=== PATIENT | male | born 1965 | race Caucasian/White ===

== ENCOUNTER → 2018-04-26 | Outpatient (CLI) | payer OTHER ==
--- NOTE | 2018-04-26 08:58 | MR ---
EXAMINATION TYPE: MR brain wo/w con DATE OF EXAM: 04/26/2018 COMPARISON: NONE HISTORY: 53-year-old male Tremors, Memory loss TECHNIQUE: Multiplanar, multisequence images of the brain and brainstem were acquired before and aft er administration of 9.5 mL IV Gadavist. Diffusion weighted imaging is performed. FINDINGS: No evidence for acute infarction, hemorrhage, mass, mass effect, midline shift, herniation, effacemen t of basal cisterns, or extra-axial fluid collection. The ventricles and sulci are age-appropriate. Major intracranial flow voids are intact. T2/FLAIR weighted sequences show a few (<5) bright signal foci in the subcortical region of the right frontal and right frontoparietal lobes. Prominent perivascular spaces are present in both basal gang tomasz. Midline structures demonstrate normal morphology. The craniocervical junction is normal. Post contrast images demonstrate no evidence of pathologic enhancement. Dural venous sinuses are pat ent. Mild mucosal thickening within the ethmoid air cells and trace within the maxillary and frontal sinus es. Globes are intact. IMPRESSION: 1. No acute intracranial abnormality seen. Only a few bright white matter foci particularly in the acosta bcortical region on the right are nonspecific and likely relate to minimal changes of chronic small v essel ischemic disease. Chronic migraines may have a similar appearance. 2. Mild chronic paranasal sinus disease.
== END | disposition home or self-care (01) ==
LOC: RADMRIMAIN 07:34
PROVIDERS: ATTEND Psychiatry & Neurology Neurology
DX: R90.89 Other abnormal findings on diagnostic imaging of central nervous system (principal); R41.3 Other amnesia; R25.1 Tremor, unspecified
CPT/HCPCS: 70553; A9585

== ENCOUNTER → 2020-09-19 | Outpatient (CLI) | payer MEDICARE, OTHER ==
--- NOTE | 2020-09-19 18:06 | CONS ---
CONSULTATION DATE OF SERVICE: 09/19/2020. 55-year-old gentleman has been evaluated in the sleep center for possible obstructive sleep apnea-hypopnea syndrome, out of dream movements and jerking and twitches during the sleep. HISTORY OF PRESENT ILLNESS/SLEEP-WAKE EVALUATION: SLEEP SCHEDULE: Patient's usual sleep schedule from 8 p.m. to 6:30 am. Usually he falls asleep very quickly. No TV in bedroom. DURING SLEEP: He sleeps in different positions with extremely loud snoring and witnessed episodes of stopped breathing during sleep. The patient also has episodes of out of dream movements, twitches, squeezing his hands. He wakes up from sleep 4 times with 4 episodes of nocturia. Positive history of sleep talking, sweating, heartburns, awakenings with dry mouth. DURING THE DAY/SLEEP WAKE EVALUATION: In the morning, the patient wakes up tired, has difficulties to pay attention, falling asleep during the day. Has problems with concentration, irritability, depression and anxiety. [place] Sleepiness Scale significantly increased to 13. The patient takes naps 3 or more times during the day. No history of hypnagogic hallucinations, or cataplexy. PAST MEDICAL HISTORY: Positive for bipolar, hyperlipidemia, prostate cancer. PAST SURGICAL HISTORY: Prostate surgery for prostate CA in 2018. Hernia repair 2019. Neck fusion surgeries x3, 2009, knee arthroscopic surgery. MEDICATIONS: [place] 7.5. Abilify 10 mg once a day, atorvastatin 20 mg once a day, Lamictal 150 mg once a day, Cymbalta 60 mg once a day. Wellbutrin 150 mg once a day. FAMILY HISTORY: Hypertension, hyperlipidemia, arthritis, emphysema, acid reflux, thyroid problems. REVIEW OF SYSTEMS: Multiple awakenings from sleep, sleepiness during the day, out of dream movements during the sleep. PHYSICAL EXAMINATION: GENERAL: gentleman without distress. BP 132/92, HR 93, RR 15, height 5 feet 10 inches, weight 241.2, temperature 98.6, oxygen saturation at room air 97% . HEENT: Oropharynx extremely low position of soft palate. Mallampati 4. Wide neck 19 inches in circumference. NECK: Supple, no JVD. Thyroid is not palpable. LUNGS: Clear to percussion and to auscultation. Good air exchange. No wheezing or rhonchi. HEART: S1, S2 regular. No murmurs, gallops, or rubs. ABDOMEN: BMI 34.5. Abdomen: Obese. Soft and nontender. Bowel sounds are present. No organomegaly appreciated. EXTREMITIES: No clubbing or cyanosis. PODIATRIST: Awake, alert, and oriented X3. Cranial nerves 2 to 7 intact. There is no fasciculation or atrophy. noted. No focal deficits observed. IMPRESSION: 1. Loud snoring, witnessed episodes of stopped breathing during sleep, multiple awakenings from sleep with nocturia, extremely low position of soft palate, wide neck, sleepiness. [place] Sleepiness Scale increased to 13. Obstructive sleep apnea-hypopnea syndrome. 2. Episodes of out of dream movements with squeezing hands, possible REM sleep behavioral disorder. 3. Jerking movements, twitches, periodic limb movements. 4. Obesity, BMI 34.5. 5. History of bipolar disorder. 6. Hyperlipidemia. 7. History of prostate carcinoma, status post prostatectomy in 2018. 8. Back problems. 9. Status post neck fusion surgery x3 in 2008. 10.Status post hernia repair 2019. 11.Status post knee arthroscopic surgery about 20 years ago. PLAN: 1. Polysomnography for evaluation of patient breathing during sleep and also to check for possible REM sleep behavioral disorder and periodic limb movements. 2. CPAP/BiPAP titration if sleep study confirms obstructive sleep apnea-hypopnea syndrome. 3. Preferable position during sleep on the side. 4. No driving if patient feels any sleepiness. 5. I will see patient for follow up visit to explain results of testing and following plan. Thank you very much for referring this patient for consultation. Sincerely, Segundo Montez MD, PhD, FAASM Diplomat of [place] Board of Medical Specialties [place] Board of Internal Medicine Real Estate Leasing Manager of [facility] [place] MMODL / IJN: [id number] /
== END | disposition home or self-care (01) ==
CPT/HCPCS: 99211

== ENCOUNTER → 2020-12-25 | Outpatient (CLI) | payer MEDICARE, OTHER ==
--- NOTE | 2020-12-25 19:23 | SFUN ---
SLEEP CENTER FOLLOW UP NOTE DATE OF SERVICE: 12/25/2020 55-year-old gentleman has been followed in Sleep Center for treatment of obstructive sleep apnea-hypopnea syndrome. Today is his first visit after patient received BiPAP unit. I discussed results of the sleep studies with the patient in detail. He has extremely severe obstructive sleep apnea-hypopnea syndrome with apnea-hypopnea index 79. After starting treatment with BiPAP, patient feels better. He sleeps better and he feels better during the day. [place] Sleepiness Scale today is 4, which is normal. I checked BiPAP unit. Pressure is 17/13 cm of water. Usage is 27/30 nights, and 11 nights for more than 4 hours, average usage 3.7 hours per night. Leak is 6 L/minute, which is normal range. Apnea-hypopnea index is 1.0, which is totally normal. MEDICATIONS: [place], Abilify, atorvastatin, Lamictal, Cymbalta, Wellbutrin. PHYSICAL EXAMINATION: GENERAL: Patient in no distress. BP 139/82, HR 102, RR 16, weight 235, temperature 97.8, oxygen saturation at room air 96%. Oropharynx: Low position of soft palate. NECK: Supple, no JVD. Thyroid is not palpable. LUNGS: Clear to percussion and to auscultation. Good air exchange. No wheezing or rhonchi. HEART: S1, S2 regular. No murmurs, gallops, or rubs. ABDOMEN: Obese. Soft and nontender. Bowel sounds are present. No organomegaly appreciated. EXTREMITIES: No clubbing or cyanosis. SUPERVISOR QUILTING: Awake, alert, and oriented X3. Cranial nerves 2 to 7 intact. There is no fasciculation or atrophy. noted. No focal deficits observed. IMPRESSION: 1. Severe obstructive sleep apnea-hypopnea syndrome; apnea-hypopnea index 79.2, full normalization of respiration on BiPAP, benefitting from treatment, borderline compliance. The patient will continue to use his BiPAP equipment every night for the whole night. 2. Obesity. 3. History of episodes of out of dream movements. No recent episodes. 4. Periodic limb movements by results of during the titration. 5. History of bipolar disorder. 6. Hyperlipidemia. 7. History of prostate carcinoma, status post prostatectomy in 2018. 8. Back problems. 9. Status post neck fusion surgery times three in 2008. 10.Status post hernia repair in 2019. 11.Status post knee arthroscopic surgery about 20 years ago. PLAN: 1. I discussed with the patient position of the machine during the sleep. 2. Ramp time was adjusted to 20 minutes. It was 0 before. Patient feels that the pressure in his machine was too high at the beginning when he started to use it at night. 3. Sleep hygiene with regular time in bed for at least 7-1/2 to 8 hours. 4. Precautions related to driving. No driving if feeling sleepiness. 5. I will maintain all necessary prescription for PAP supplies including mask, tube, filters. 6. Watching weight. 7. Follow-up visit in 6 months or earlier if patient has any problems. Thank you very much for allowing me to participate in management of your patient. Sincerely, Segundo Montez MD, PhD, FAASM Diplomat of [place] [employer] Medical Specialties [place] [employer] of Internal Medicine Vendor Management Consultant of [facility] [place] MMODL / IJN: [id number] /
== END ==
LOC: SLEEP 10:14
PROVIDERS: ATTEND Internal Medicine
DX: G47.33 Obstructive sleep apnea (adult) (pediatric) (principal); E66.9 Obesity, unspecified; G47.61 Periodic limb movement disorder; F31.9 Bipolar disorder, unspecified; E78.5 Hyperlipidemia, unspecified; M53.80 Other specified dorsopathies, site unspecified; Z99.89 Dependence on other enabling machines and devices; Z98.890 Other specified postprocedural states; Z85.46 Personal history of malignant neoplasm of prostate

== ENCOUNTER → 2021-04-24 | Outpatient (CLI) | payer MEDICARE ==
--- NOTE | 2021-04-24 13:36 | MR ---
EXAMINATION TYPE: MR knee LT wo con DATE OF EXAM: 04/24/2021 COMPARISON: Outside radiographs 04/01/2021 HISTORY: 56-year-old male M25.562. Left knee posterior and anterior pain with swelling and locking x3 months TECHNIQUE: Multiplanar, multisequence imaging of the left knee is performed without IV contrast. FINDINGS: The ACL and PCL are intact. Mild edema on either side of the intact MCL fibers. Some intermediate signal at the femoral attachment of the LCL proper and also within the popliteus te ndon. LCL complex otherwise intact. There is a complex multidirectional tear extending throughout the posterior horn and body of the medi al meniscus. Tear extends to the junction with the anterior horn. Mild extrusion of the meniscal body . There is moderate irregular cartilage thinning throughout the medial compartment. Inner margin tear/fraying involving the posterior horn and body of the lateral meniscus. Some intrasu bstance signal likely corresponds to meniscal chondrocalcinosis seen on radiograph. There is mild to moderate diffuse thinning of lateral compartment articular cartilage volume. Patellofemoral compartment appears intact. Extensor mechanism is intact. Nonspecific anterior subcutaneous soft tissue swelling. There is some f ocal edema within the suprapatellar fat pad. Small knee joint effusion. There is a moderate sized 7.0 x 3.0 cm slowly leaking Segura's cyst. Multil ocular cystic lesion present along the lateral margin of the Segura's cyst towards the midline overlyi ng the gastrocnemius musculature measuring 2.8 x 1.6 cm, likely an adjacent multilocular ganglion cys t. Normal popliteal artery anatomy. Mild overall loss of muscle bulk. No suspicious bone marrow replacem ent. IMPRESSION: 1. Complex multidirectional tear involving the posterior horn and body of the medial meniscus with te ar extending to the junction with the anterior horn. Moderate overall medial compartmental osteoarthr osis. 2. Inner margin tear/fraying posterior horn and body of the lateral meniscus. Mild degenerative thinn ing of lateral compartment articular cartilage volume. 3. Grade 1 MCL sprain. 4. Some intermediate signal at the femoral attachment of the LCL proper and within the popliteus tend on could represent a low-grade sprain and mild tendinosis/contusion, respectively. 5. Moderate-sized 7.0 cm slowly leaking Segura's cyst. A 2.8 x 1.6 cm lesion along the lateral margin of the Segura's cyst could represent adjacent multilocular ganglion cyst formation. Recommend three-mo nth follow-up ultrasound to reassess. 5. Edema in the suprapatellar fat pad is nonspecific but may be seen in the setting of fat pad imping ement syndrome. Clinically correlate.
== END | disposition home or self-care (01) ==
LOC: RADMRIMAIN 11:11
PROVIDERS: ATTEND Orthopaedic Surgery
DX: S83.412A Sprain of medial collateral ligament of left knee, initial encounter (principal); S83.242A Other tear of medial meniscus, current injury, left knee, initial encounter; S83.282A Other tear of lateral meniscus, current injury, left knee, initial encounter

== ENCOUNTER → 2021-05-27 | Outpatient (CLI) | payer MEDICARE ==
[2021-05-27 09:03] LABS: Basophils % (A) 1 %; Eosinophils # (A) 0.3 k/uL (0-0.7); Eosinophils % (A) 5 %; HCT 38.1 % (39.0-53.0); HGB 12.9 gm/dL (13.0-17.5); Lymphocytes % (A) 14 %; MCH 30.1 pg (25.0-35.0); MCHC 33.8 g/dL (31.0-37.0); MCV 88.8 fL (80.0-100.0); Mean Platelet Volume 6.9; Monocytes # (A) 0.4 k/uL (0-1.0); Monocytes % (A) 6 %; Neutrophils # (A) 4.9 k/uL (1.3-7.7); Neutrophils % (A) 72 %; Platelet Count 248 k/uL (150-450); RBC 4.29 m/uL (4.30-5.90); RDW 13.1 % (11.5-15.5); WBC 6.8 k/uL (3.8-10.6)
[2021-05-27 09:13] LABS: Potassium 4.1 mmol/L (3.5-5.1)
== END | disposition home or self-care (01) ==
LOC: LABPAT 08:24
PROVIDERS: ATTEND Orthopaedic Surgery
DX: Z01.812 Encounter for preprocedural laboratory examination (principal); M23.92 Unspecified internal derangement of left knee
CPT/HCPCS: 36415; 80051; 85025

== ENCOUNTER 2021-06-05 10:56 | Day surgery (SDC) | payer MEDICARE ==
[2021-06-04 09:32] VITALS: BMI 37.3
--- NOTE | 2021-06-04 20:32 | HP ---
HISTORY AND PHYSICAL DATE OF SURGERY: 06/05/2021 Bryant Castle is a 56-year-old patient seen with progressive left knee pain. We discussed options for treatment. He elected to proceed with left knee arthroscopy. Consent was obtained. PAST MEDICAL HISTORY: Anxiety. SURGICAL HISTORY: Cervical spine surgery, prostatectomy. DAILY MEDICATIONS: Wellbutrin, Celexa, Abilify. ALLERGIES: NONE. SOCIAL HISTORY: He denies current tobacco use. PHYSICAL EVALUATION OF THE LEFT KNEE: Range of motion is zero to 100. There is a palpable Segura cyst. There is mild effusion. Tenderness along the lateral joint line. Tenderness along the medial joint line. Positive medial Laura's. Positive lateral Laura's. Ligaments stable. Hip rotation without pain. Distal neurovascular exam intact. Left knee radiographs reveal osteoarthritic changes. Left knee MRI revealed complex meniscal tears and Segura cyst. IMPRESSION: Internal derangement of left knee with medial and lateral meniscal tears. PLAN: Left knee arthroscopy with partial meniscectomy and debridement. MMODL / IJN: [id number] /
[~2021-06-05 10:56] MED LIST: DEXAMETHASONE SOD PHOSPHATE 4 MG/ML 1 ML VIAL IV ONE; HYDROmorphone 0.5 MG/0.5 ML SYRINGE IVP PRN; LACTATED RINGERS 1,000 ML IV SCH; LIDOCAINE 1% (10MG/ML) FOR IV START INTRADERMA PRN; MIDAZOLAM 2 MG/2 ML VIAL IV PRN; ONDANSETRON 4 MG/2 ML VIAL IVP ONE
[2021-06-05] MEDS ORDERED: BUPIVACAINE (PF) 0.25% 30 ML VIAL SQ ONE ×2 (13:48→14:23)
[2021-06-05] MEDS ORDERED: MIDAZOLAM 2 MG/2 ML VIAL ONE (13:50)
[2021-06-05] MEDS ORDERED: SUCCINYLCHOLINE CHLORIDE VIAL 200 MG/10 ML VIAL IV ONE (13:50)
[2021-06-05] MEDS ORDERED: .fentaNYL (PF) 50 MCG/ML 2 ML AMP ONE (13:50)
[2021-06-05] MEDS ORDERED: LIDOCAINE 1% INJ 10MG/ML (20 ML MDV) ONE (13:50)
[2021-06-05] MEDS ORDERED: ALBUTEROL HFA INHALER INHALATION ONE (13:50)
[2021-06-05] MEDS ORDERED: PROPOFOL 10 MG/ML 20 ML VIAL IV ONE (13:50)
[2021-06-05 14:38] VITALS: TEMP 98
--- NOTE | 2021-06-05 14:49 | P.OP ---
Date of Procedure: 06/05/21 Preoperative Diagnosis: Internal derangement left knee Postoperative Diagnosis: 1. Tear medial meniscus left knee 2. Lateral meniscus left knee 3. Reactive synovitis medial, lateral and suprapatellar compartments left knee Procedure(s) Performed: 1. Arthroscopic partial medial and lateral meniscectomy left knee 2. Arthroscopic partial synovectomy medial, lateral and suprapatellar compartments left knee Anesthesia: ANGUSA, local Surgeon: Kilo Lenz Estimated Blood Loss (ml): 7 Pathology: none sent Condition: stable Disposition: PACU Indications for Procedure: 56-year-old gentleman seen with progressive left knee pain. After treatment options were discussed, he elected to proceed with arthroscopy. Operative Findings: see description of procedure Description of Procedure: Patient was taken to the operative suite. Patient underwent a general anesthetic by the department of anesthesia. Patient was given preoperative antibiotics. The left lower extremity was placed in a well-padded arthroscopic leg nina. The left leg was prepped and draped in the normal sterile orthopedic fashion. A lateral parapatellar and suprapatellar incision was made. Trochars were inserted. Arthroscopy was initiated. Suprapatellar pouch revealed diffuse thick reactive synovitis. The patellofemoral joint appeared to articulate congruently. There was grade 1 chondromalacia of the patella with no tears present. The scope was guided into the medial gutter. No loose bodies or plica were identified. The scope was then guided into the medial compartment. A medial parapatellar incision was made. Trocar inserted followed by probe. Was a complex tear involving the posterior horn of the medial meniscus. There were grade 1 chondromalacia changes of the medial femoral condyle with no tears. There was thick reactive synovitis anteriorly. I performed a partial medial meniscectomy getting down to stable meniscal tissue. I performed a partial synovectomy decompressing the reactive synovitis. Shaver was removed. The residual meniscus was probed and found to be stable. There was good decompression of the synovitis. Scope and probe were then guided into the intercondylar notch. Cruciates were identified, probed and found to be stable. The scope and probe were then guided into lateral compartment. There was a radial tear involving the posterior horn of lateral meniscus. There was thick reactive synovitis anteriorly. There was no significant chondromalacia. I performed a partial lateral meniscectomy. I now performed a partial synovectomy. The residual meniscus was found to be stable. There was good decompression of the synovitis. The scope was in guided back into the suprapatellar compartment. I introduced a motorized shaver into the super compartment. I debrided some piecemeal fragments of meniscus I encountered. I performed a partial synovectomy. Shaver was removed. There was good decompression of the synovitis. I now took one more look around the entire knee, no residual debris. Instruments were now removed from the joint. The joint was infiltrated with .25% Marcaine. Steri-Strips were applied to the portal sites. Sterile dressings were applied. The patient was placed into a JONATAN hose. No tourniquet was utilized. The patient was awakened, transferred to a bed and taken to recovery stable satisfactory condition.
[2021-06-05 15:27] VITALS: RESP 18
[2021-06-05 15:49] VITALS: BP 127/81; PULSE 82
== END 2021-06-05 15:53 | disposition home or self-care (01) ==
LOC: OR 10:56
PROVIDERS: ATTEND Orthopaedic Surgery
DX: M23.92 Unspecified internal derangement of left knee (principal); M23.204 Derangement of unspecified medial meniscus due to old tear or injury, left knee; M23.201 Derangement of unspecified lateral meniscus due to old tear or injury, left knee; M65.862 Other synovitis and tenosynovitis, left lower leg; F41.9 Anxiety disorder, unspecified; Z98.890 Other specified postprocedural states; Z90.79 Acquired absence of other genital organ(s); E78.5 Hyperlipidemia, unspecified; G47.33 Obstructive sleep apnea (adult) (pediatric); Z85.46 Personal history of malignant neoplasm of prostate; F32.A Depression, unspecified; K21.9 Gastro-esophageal reflux disease without esophagitis; Z97.2 Presence of dental prosthetic device (complete) (partial); M22.40 Chondromalacia patellae, unspecified knee; E66.01 Morbid (severe) obesity due to excess calories; Z68.31 Body mass index [BMI] 31.0-31.9, adult; Z79.899 Other long term (current) drug therapy
CPT/HCPCS: 29880; J2250; J0330; J1100; J0690; J2405; J2001; J3010; J2704

== ENCOUNTER → 2021-06-26 | Outpatient (CLI) | payer MEDICARE, OTHER ==
--- NOTE | 2021-06-27 09:31 | SFUN ---
SLEEP CENTER FOLLOW UP NOTE DATE OF SERVICE: 06/26/2021 56-year-old gentleman who has been followed in Sleep Center for treatment of obstructive sleep apnea-hypopnea syndrome. Patient continued to use his BiPAP equipment every night for the whole night. Sleeps better on BiPAP than before. This is his second visit on treatment with BiPAP. [place] Sleepiness Scale is 7. He getting his supplies in time. I checked BiPAP unit. Pressure is 17/13 cm of water. Usage is 30/30 nights and 27/30 nights for more than 4 hours. Average usage 4.8 hours per night. Leak is 11 L/minute, which is normal range. Apnea-hypopnea index is only 0.6 which is normal. MEDICATIONS: [place], Wellbutrin, Abilify, Cymbalta, Lamictal, Lasix. PHYSICAL EXAMINATION: GENERAL: Patient in no distress. BP 150/84, HR 90, RR 16, height 5 feet 9-3/4 inches, weight 257.6 pounds, body mass index 37.1, temperature 97.4, oxygen saturation at room air 97%. Oropharynx: Low position of soft palate. NECK: Supple, no JVD. Thyroid is not palpable. LUNGS: Clear to percussion and to auscultation. Good air exchange. No wheezing or rhonchi. HEART: S1, S2 regular. No murmurs, gallops, or rubs. ABDOMEN: Obese. Soft and nontender. Bowel sounds are present. No organomegaly appreciated. EXTREMITIES: No clubbing or cyanosis. LEATHER CRAFTER: Awake, alert, and oriented X3. Cranial nerves 2 to 7 intact. There is no fasciculation or atrophy. noted. No focal deficits observed. IMPRESSION: 1. Extremely severe obstructive sleep apnea-hypopnea syndrome, AHI 79.2. The patient demonstrated good compliance with treatment. Normal respiration on BiPAP. 2. Obesity, BMI 37.1. 3. History of episodes of [id number] movements in the past, no recent episode. 4. Periodic limb movements during titration. No complaints of periodic limb movements at the present time. 5. Bipolar disorder. 6. Hyperlipidemia. 7. History of prostate carcinoma, status post prostatectomy in 2018. 8. Status post several neck fusions. 9. Back problems. 10.Status post hernia repair in 2019. 11.Status post knee arthroscopic surgery about 20 years ago. PLAN: 1. Patient will continue to use PAP equipment every night for the whole night. 2. Sleep hygiene with regular time in bed for at least 7-1/2 to 8 hours. 3. Precautions related to driving. No driving if feeling sleepiness. 4. I will maintain all necessary prescription for PAP supplies including mask, tube, filters. 5. Watching weight. 6. Follow-up visit in 6 months or earlier if patient has any problems. Thank you very much for allowing me to participate in management of your patient. Sincerely, Segundo Montez MD, PhD, FAASM Diplomat of [place] Board of Medical Specialties Sleep Medicine Board of [place] Board of Internal Medicine Customer Support Engineer of [facility] [place] MMODL / IJN: [id number] /
== END ==
LOC: SLEEP 11:06
PROVIDERS: ATTEND Internal Medicine
DX: G47.33 Obstructive sleep apnea (adult) (pediatric) (principal); E66.9 Obesity, unspecified; G47.61 Periodic limb movement disorder; F31.9 Bipolar disorder, unspecified; E78.5 Hyperlipidemia, unspecified; M54.9 Dorsalgia, unspecified; Z85.46 Personal history of malignant neoplasm of prostate; Z90.79 Acquired absence of other genital organ(s); Z98.1 Arthrodesis status; Z98.890 Other specified postprocedural states; Z79.899 Other long term (current) drug therapy; Z68.37 Body mass index [BMI] 37.0-37.9, adult

== ENCOUNTER → 2021-12-25 | Outpatient (CLI) | payer MEDICARE, OTHER ==
--- NOTE | 2021-12-25 11:10 | P.PN ---
Subjective DATE: 12/25/2021 FOLLOW UP VISIT. Patient with obstructive sleep apnea hypopnea syndrome return to sleep center for follow-up visit. Patient is using PAP equipment every night for the whole night, has problem with hose, close was not replaced for 1 year, but connection between hose and mask. The patient does not have significant problems with the mask, PAP unit and humidification. [place] sleepiness scale is 6. I checked BiPAP unit. Air filter is in a very bad shape. BiPAP unit pressure 19/13 cm H2O. Usage is 98 % for more then 4 hours, average 5 hours per night. Leak is 20 l/m, which is in acceptable range. Apnea Hypopnea Index is 0.3, which is normal. MEDICATIONS:1. Vicodin 3 times a day 2. Lamictal twice a day 3. Vibryd 2 times a day 4. Cymbalta 5. Hydrochlorothiazide 6. Lipitor During physical exam: GENERAL: A pleasant patient without any distress. VITAL SIGNS: BP 130/81, HR 88, RR 16 , weight 261, height 5 foot10 inches, body mass index 37.4, temperature 97.5, oxygen saturation at room air 96% . HEENT: PERRLA, EOMI.low position of soft palate, Mallapati 34 . NECK: Supple. No JVD. LUNGS: Clear to percussion and to auscultation. Good air exchange. No wheezing or rhonchi. HEART: S1, S2 regular. ABDOMEN: Soft and nontender. Slightly obese EXTREMITIES: No clubbing or cyanosis. SCROLL SHEAR OPERATOR: Awake, alert, and oriented x3. No focal deficit. Impressions: 1. Obstructive sleep apnea-hypopnea syndrome. Patient demonstrated great compliance with treatment, benefiting from treatment. Air filter in bed shape, tube has to be replaced. 2. Obesity. 3. History of out of dream movements during the sleep in the past, no recent episodes. 4. Bipolar disorder. 5. Hyperlipidemia. 6. Periodic limb movements have been documented during titration, presently no complaints. 7. History of prostate CVA, status post prostatectomy in 2018. 8. Status post several neck fusions. 9. Back problems. 10 status post hernia repair in 2019 Plan: 1. Continue using PAP equipment every night for the whole night. Replace tube. 2. To change air filter at least 1-2 times per month. To change air filter today 3. PAP unit should stay lower then position of the head. 4. Advised patient to remove all remaining water from humidifier canister daily and make it dry after each usage. Refill canister with fresh distilled water before each usage. 5. Sleep hygiene with regular time in bed for at least 8 hours. 6. Precautions related to driving. No driving if feel any sleepiness. 7. I will maintain prescription for PAP supplies including mask, tube, filters. 8. Follow up visit in 6 months or earlier if patient has any problems. 9. Watching and losing weight. Thank you very much for allowing me to participate in the management of your patient. Segundo Montez MD, PhD, FAASM. Diplomat of [place] [employer] Sleep Medicine, Sleep Medicine Board by [place] [employer] of Internal Medicine [place] of [facility] [place]
== END ==
LOC: SLEEP 10:16
PROVIDERS: ATTEND Internal Medicine
DX: G47.33 Obstructive sleep apnea (adult) (pediatric) (principal); E66.9 Obesity, unspecified; F31.9 Bipolar disorder, unspecified; E78.5 Hyperlipidemia, unspecified; Z85.46 Personal history of malignant neoplasm of prostate; Z90.79 Acquired absence of other genital organ(s); Z98.890 Other specified postprocedural states; M53.80 Other specified dorsopathies, site unspecified; Z98.1 Arthrodesis status; Z99.89 Dependence on other enabling machines and devices; Z68.37 Body mass index [BMI] 37.0-37.9, adult; Z79.899 Other long term (current) drug therapy
CPT/HCPCS: 99212

== ENCOUNTER → 2022-07-02 | Outpatient (CLI) | payer MEDICARE ==
--- NOTE | 2022-07-02 10:49 | P.PN ---
Subjective DATE: 07/02/2022 FOLLOW UP VISIT. Patient with obstructive sleep apnea hypopnea syndrome return to sleep center for follow-up visit. Information from previous visit have been reviewed. Patient is using BPAP equipment every night for the whole night, getting PAP supplies in time. No episodes of out of dream movements, no significant movements during the night related to periodic limb movements. The patient does not have significant problems with the mask, BPAP unit and humidification. [place] sleepiness scale is 8, which is normal. I checked information from BPAP unit. BPAP unit pressure 17/13 cm H2O. Usage is 95% and 80 % for more then 4 hours, average 4.2 hours per night. Leak is 23 l/m, which is in acceptable range. Apnea Hypopnea Index is 1.1, which is normal. MEDICATIONS:1. Omeprazole 2. Aldactone 3. Abilify 4. Atorvastatin 5. Metformin 6. Lamictal 7. Duloxetine 8. Wellbutrin 9. Lyrica During physical exam: GENERAL: A pleasant patient without any distress. VITAL SIGNS: BP 124/81, HR 91, RR 18, weight 264.2, temperature 97.9, oxygen saturation at room air 97 % . HEENT: PERRLA, EOMI.low position of soft palate, Mallapati 34. NECK: Supple. No JVD. LUNGS: Clear to percussion and to auscultation. Good air exchange. No wheezing or rhonchi. HEART: S1, S2 regular. ABDOMEN: Soft and nontender. Obese EXTREMITIES: No clubbing or cyanosis. FURNACE INSTALLER HELPER: Awake, alert, and oriented x3. No focal deficit. Impressions: 1. Obstructive sleep apnea-hypopnea syndrome. Patient demonstrated good compliance with treatment, benefiting from treatment. 2. History of REM sleep behavior disorder, no recent episodes. 3. History of periodic limb movements documented during titration, clinically no problems. 4. Bipolar disorder. 5. Obesity. 6. Hyperlipidemia. 7. History of prostate CA, status post prostatectomy in 2018. 8. Status post several neck fusions. 9. Back problems. 10. Status post hernia repair in 2019. Plan: 1. Continue using PAP equipment every night for the whole night. 2. To change air filter at least 1-2 times per month. 3. PAP unit should stay lower then position of the head. 4. Advised patient to remove all remaining water from humidifier canister daily and make it dry after each usage. Refill canister with fresh distilled water before each usage. 5. Sleep hygiene with regular time in bed for at least 8 hours. 6. Precautions related to driving. No driving if feel any sleepiness. 7. I will maintain prescription for PAP supplies including mask, tube, filters. 8. Watching and losing weight. 9. Follow up visit in 6 months or earlier if patient has any problems. Thank you very much for allowing me to participate in the management of your patient. Segundo Montez MD, PhD, FAASM. Diplomat of [place] [employer], Sleep Medicine Board by [place] [employer] Correctional Officer Chief of [facility] [place]
== END ==
LOC: SLEEP 10:15
PROVIDERS: ATTEND Internal Medicine
DX: G47.33 Obstructive sleep apnea (adult) (pediatric) (principal); F31.9 Bipolar disorder, unspecified; E66.9 Obesity, unspecified; E78.5 Hyperlipidemia, unspecified; M54.9 Dorsalgia, unspecified; Z48.815 Encounter for surgical aftercare following surgery on the digestive system; Z90.79 Acquired absence of other genital organ(s); Z85.46 Personal history of malignant neoplasm of prostate; G47.52 REM sleep behavior disorder; G47.61 Periodic limb movement disorder; Z98.1 Arthrodesis status; Z99.89 Dependence on other enabling machines and devices
CPT/HCPCS: 99212

== ENCOUNTER → 2023-02-10 | Outpatient (CLI) | payer MEDICARE ==
--- NOTE | 2023-02-10 11:05 | P.PN ---
Subjective DATE: 02/10/2023 FOLLOW UP VISIT. Patient with obstructive sleep apnea hypopnea syndrome return to sleep center for follow-up visit. Information from previous visit have been reviewed. Patient is using PAP equipment every night for the whole night, getting PAP supplies in time. The patient does not have significant problems with the mask, PAP unit and humidification. [place] sleepiness scale is increased to 12, but patient reported that she is so sleepiness now much better while he is on treatment with CPAP.. I checked information from PAP unit. PAP unit pressure 17/13 cm H2O. Usage is 90 % for more then 4 hours, average 4.5 hours per night. Leak is 17 l/m, which is in acceptable range. Apnea Hypopnea Index is 0.5, which is normal. MEDICATIONS:1. Metformin 500 mg twice a day 2. Lamictal 3. Lyrica 150 mg 3 times a day 4. Wellbutrin 150 mg twice a day 5. Abilify 10 mg once a day 6. Cymbalta 60 mg twice a day 7. Prilosec 20 mg twice a day During physical exam: GENERAL: A pleasant patient without any distress. VITAL SIGNS: BP 143/82, HR 104, RR 16 , weight 266.6, temperature 98.2, oxygen saturation at room air 97 % . HEENT: PERRLA, EOMI.low position of soft palate, Mallapati 34 . NECK: Supple. No JVD. LUNGS: Clear to percussion and to auscultation. Good air exchange. No wheezing or rhonchi. HEART: S1, S2 regular. ABDOMEN: Soft and nontender. Obese EXTREMITIES: No clubbing or cyanosis. ELECTRICAL MACHINE BUILDER: Awake, alert, and oriented x3. No focal deficit. Impressions: 1. Obstructive sleep apnea-hypopnea syndrome. Patient demonstrated great compliance with treatment, benefiting from treatment. 2. Obesity, patient increased his weight on 2 pounds comparing to the previous visit. 3. History of REM sleep behavior disorder in the past, no recent episodes. 4. History of periodic limb movements, no complaints. 5. Bipolar disorder 6. history of prostate cancer status post prostatectomy in 2018. 7. Hyperlipidemia. 8. Status post several neck fusion. 9. Back problems PlShe'll resume utilized his daughter is sick on treatmentan: 1. Continue using PAP equipment every night for the whole night. 2. To change air filter at least 1-2 times per month. 3. PAP unit should stay lower then position of the head. 4. Advised patient to remove all remaining water from humidifier canister daily and make it dry after each usage. Refill canister with fresh distilled water before each usage. 5. Sleep hygiene with regular time in bed for at least 8 hours. 6. Precautions related to driving. No driving if feel any sleepiness. 7. I will maintain prescription for PAP supplies including mask, tube, filters. 8. Follow up visit in 6 months or earlier if patient has any problems. 9. Watching and losing weight. Thank you very much for allowing me to participate in the management of your patient. Segundo Montez MD, PhD, FAASM. Diplomat of [place] [employer], Sleep Medicine Board by [place] [employer] Rice Field Worker of [facility] [place]
== END ==
LOC: 3 N SLEEP 10:17
PROVIDERS: ATTEND Internal Medicine
DX: G47.33 Obstructive sleep apnea (adult) (pediatric) (principal); E66.9 Obesity, unspecified; F31.9 Bipolar disorder, unspecified; E78.5 Hyperlipidemia, unspecified; M54.9 Dorsalgia, unspecified; Z98.890 Other specified postprocedural states; Z85.46 Personal history of malignant neoplasm of prostate; Z99.89 Dependence on other enabling machines and devices; Z98.1 Arthrodesis status
CPT/HCPCS: 99212

== ENCOUNTER → 2023-05-21 | Outpatient (CLI) | payer MEDICARE ==
--- NOTE | 2023-05-21 13:49 | NM ---
EXAMINATION TYPE: NM stress cardiolite complete DATE OF EXAM: 05/21/2023 COMPARISON: NONE CLINICAL INDICATION: Male, 58 years old with history of I20.9 ANGINA; TECHNIQUE: After the intravenous administration of 10.3 mCi Tc 99m Sestamibi - Rest images obtained 70 minutes post injection. The patient exercised using a KEN protocol and 1 minute prior to peak exercise was injected with 25.9 mCi Tc 99m Sestamibi - Stress images obtained 15 minutes post injecti on. FINDINGS: Targeted heart rate was achieved during performance of the study. Review of stress and rest SPECT adrian ges demonstrates no distinct perfusion abnormality. Gated analysis shows normal wall motion with an estimated left ventricular ejection fraction of 67 %. IMPRESSION: No scintigraphic evidence for reversible ischemia
--- NOTE | 2023-05-24 09:11 | CA ---
Exercise Nuclear Stress Test Report Name: [facility] Exam Date: 05/21/2023 09:25 Exam Location: [facility] Ht (in): 70 Wt (lb): 274 BSA: 2.39 Ordering Phys: LULA VIDALES Referring Phys: LULA VIDALES Technologist: KATHI SILVA Age: 58 Gender: M : 1965 Procedure CPT: Indications: ICD-10 Codes: Patient History: CP, JACIEL, DM, CHOL, TOB, COPD Medications: METFORMIN, LAMIZTOL, LYRIA, WELBUTRIN, KLORCON, CYMBALTA, OMEPRAZOLE, ABILILAL Meds past 24 hrs: Pretest Chest Pain: STRESS TEST Pradeep Protocol Exercise Duration (min:sec): 06:[address] Depressions (mm): Angina Score: Frank Score: Resting HR (bpm): 100 Peak HR (bpm): 146 Resting BP (mmHg): 135 / 83 Peak BP (mmHg): 194 / 98 MPHR: 163 Target HR: 139 % MPHR: 90 METS: 7.1 Total Dose: Peak Dose: Atropine: Double Product: 34360 BP Response: Stress Termination: Reached target heart rate Stress Symptoms: Dyspnea Stress Summary: The patient's target heart rate was achieved ECG ANALYSIS Resting ECG: Normal sinus rhythm normal axis normal intervals Stress ECG: Patient exercised on Pradeep protocol for 6 minutes achieving 90% of predicted maximal heart rate without chest pain or diagnostic ST segment depression CONCLUSIONS Average exercise tolerance negative stress test by EKG criteria Dr. Cameron Colon MD (Electronically Signed) Final Date: 21 May 2023 12:28
== END | disposition home or self-care (01) ==
LOC: RADNMMAIN 07:43
PROVIDERS: ATTEND Family Medicine
DX: I20.9 Angina pectoris, unspecified (principal); J44.9 Chronic obstructive pulmonary disease, unspecified; E11.9 Type 2 diabetes mellitus without complications; E78.00 Pure hypercholesterolemia, unspecified
CPT/HCPCS: 93017; 78452; A9500

== ENCOUNTER → 2023-09-09 | Outpatient (CLI) | payer MEDICARE ==
[2023-09-09 10:57] VITALS: BP 121/73; PULSE 106; RESP 18; TEMP 97.6
--- NOTE | 2023-09-09 11:37 | P.PN ---
Subjective DATE: 09/09/2023 FOLLOW UP VISIT. Patient with obstructive sleep apnea hypopnea syndrome return to sleep center for follow-up visit. Information from previous visit have been reviewed. Patient is using PAP equipment every night for the whole night, getting PAP supplies in time. The patient does not have significant problems with the mask, PAP unit and humidification. [place] sleepiness scale is borderline 11. I checked information from PAP unit. PAP unit pressure 17/13 cm H2O. Usage is 98% for more then 4 hours, average 4.9 hours per night. Leak is 26 l/m, which is in acceptable range. Apnea Hypopnea Index is 0.3, which is normal. MEDICATIONS:1. Bupropion 150 mg twice a day 2. Lamictal 150 mg once a day 3. Metformin 500 mg twice a day 4. Omeprazole 20 mg once a day 5. Furosemide 20 mg once a day 6. Abilify 10 mg once a day 7. Duloxetine 60 mg twice a day 8. Gabapentin 600 mg twice a day During physical exam: GENERAL: A pleasant patient without any distress. VITAL SIGNS: Please see below. HEENT: PERRLA, EOMI.low position of soft palate, Mallapati 3-4 . NECK: Supple. No JVD. LUNGS: Clear to percussion and to auscultation. Good air exchange. No wheezing or rhonchi. HEART: S1, S2 regular. ABDOMEN: Soft and nontender. Obese EXTREMITIES: No clubbing or cyanosis. PRESS OPERATOR: Awake, alert, and oriented x3. No focal deficit. Impressions: 1. Obstructive sleep apnea-hypopnea syndrome. Patient demonstrated great compliance with treatment, benefiting from treatment. 2. Obesity, present body mass index 39.9, patient lost 3 pounds since previous visit. 3. History of REM sleep behavioral disorder in the past, no recent episodes. 4. History of bipolar disorder. 5. History of prostate cancer, status post prostatectomy. 6. Hyperlipidemia. 7. Status post several neck fusions. 8. Back problems. 9. History of periodic limb movements, no complaints at the present time. Plan: 1. Continue using PAP equipment every night for the whole night. 2. To change air filter at least 1-2 times per month. 3. PAP unit should stay lower then position of the head. 4. Advised patient to remove all remaining water from humidifier canister daily and make it dry after each usage. Refill canister with fresh distilled water before each usage. 5. Sleep hygiene with regular time in bed for at least 8 hours. 6. Precautions related to driving. No driving if feel any sleepiness. 7. I will maintain prescription for PAP supplies including mask, tube, filters. 8.Watching and losing weight. 9. Follow up visit in 6 months or earlier if patient has any problems. Thank you very much for allowing me to participate in the management of your patient. Segundo Montez MD, PhD, FAASM. Diplomat of [place] [employer] Medicine, Sleep Medicine Board by [place] [employer] Medicine Reverse Unit Operator Fisherman of [facility] [place] Objective - Vital Signs Vital signs: Vital Signs Temp 97.6 F 09/09/23 10:45 Pulse 106 H 09/09/23 10:45 Resp 18 09/09/23 10:45 BP 121/73 09/09/23 10:45 Pulse Ox 95 09/09/23 10:45 FiO2 Intake & Output 09/08/23 09/09/23 09/09/23 18:59 06:59 18:59 Weight 119.295 kg
== END ==
LOC: 3 N SLEEP 10:34
PROVIDERS: ATTEND Internal Medicine
DX: G47.33 Obstructive sleep apnea (adult) (pediatric) (principal); E66.9 Obesity, unspecified; G47.52 REM sleep behavior disorder; F31.9 Bipolar disorder, unspecified; E78.5 Hyperlipidemia, unspecified; M51.9 Unspecified thoracic, thoracolumbar and lumbosacral intervertebral disc disorder; M54.9 Dorsalgia, unspecified; Z85.46 Personal history of malignant neoplasm of prostate; Z98.1 Arthrodesis status; Z87.39 Personal history of other diseases of the musculoskeletal system and connective tissue; Z79.899 Other long term (current) drug therapy; Z90.79 Acquired absence of other genital organ(s); Z68.39 Body mass index [BMI] 39.0-39.9, adult; Z99.89 Dependence on other enabling machines and devices
CPT/HCPCS: 99212

== ENCOUNTER 2023-12-21 07:25 | Day surgery (SDC) | payer MEDICARE, OTHER ==
[2023-12-16 11:45] VITALS: BMI 37.3
[2023-12-21 07:51] VITALS: TEMP 97.5
[2023-12-21] MEDS: IV FLUID CONTINUATION 1,000 ML IV ONE (08:04)
[2023-12-21] MEDS: LACTATED RINGERS 1,000 ML IV SCH (08:04)
[2023-12-21 08:10] LABS: Glucose,Whole Blood 111 mg/dL (70-110)
[2023-12-21] MEDS ORDERED: PROPOFOL 10 MG/ML 20 ML VIAL IV ONE (08:44)
[2023-12-21] MEDS ORDERED: LIDOCAINE 1% INJ 10MG/ML (20 ML MDV) ONE (08:44)
--- NOTE | 2023-12-21 09:07 | P.PCN ---
Date of Procedure: 12/21/23 Procedure(s) Performed: BRIEF HISTORY: Patient is a 58-year-old pleasant white male scheduled for an elective colonoscopy as a part of screening for colon cancer. PROCEDURE PERFORMED: Colonoscopy with biopsy. PREOPERATIVE DIAGNOSIS: Screening for colon cancer. IV sedation per Anesthesia. PROCEDURE: After informed consent was obtained, the patient, was brought into the endoscopy unit. IV sedation was administered by Anesthesia under continuous monitoring. Digital rectal examination was normal. Initially the Olympus CF-160 flexible video colonoscope was then inserted in the rectum, gradually advanced into the cecum without any difficulty. Careful examination was performed as the scope was gradually being withdrawn. Ileocecal valve and the appendiceal orifice were visualized and appeared normal. Prep was excellent. Mucosa of the cecum, ascending colon, appeared normal. The transverse colon there was a 5 mm polyp that was removed by cold biopsy. Rest of the transverse colon, descending colon, sigmoid colon, and rectum appeared normal. There was a millimeter polyp removed by cold biopsy. Retroflexion was performed in the rectum and no lesions were seen. The patient tolerated the procedure well. IMPRESSION: 5 mm transverse colon polyp status post removal by cold biopsy 3 mm proximal rectal polyp status post cold biopsy RECOMMENDATIONS: Findings of this examination were discussed with the patient as well as his family. He was advised to the biopsy results and the biopsy was adenoma he can have repeat colonoscopy in 5 years.
[2023-12-21 09:31] VITALS: BP 130/76; PULSE 85; RESP 20
== END 2023-12-21 09:40 | disposition home or self-care (01) ==
LOC: ORWHC2ENDO 07:25
PROVIDERS: ATTEND Internal Medicine Gastroenterology
DX: Z12.11 Encounter for screening for malignant neoplasm of colon (principal); D12.3 Benign neoplasm of transverse colon; K62.1 Rectal polyp; I10 Essential (primary) hypertension; E78.5 Hyperlipidemia, unspecified; J44.9 Chronic obstructive pulmonary disease, unspecified; G47.33 Obstructive sleep apnea (adult) (pediatric); E11.9 Type 2 diabetes mellitus without complications; K21.9 Gastro-esophageal reflux disease without esophagitis; F41.9 Anxiety disorder, unspecified; E66.01 Morbid (severe) obesity due to excess calories; Z85.46 Personal history of malignant neoplasm of prostate; Z79.84 Long term (current) use of oral hypoglycemic drugs; Z79.51 Long term (current) use of inhaled steroids; Z79.899 Other long term (current) drug therapy; Z98.890 Other specified postprocedural states
CPT/HCPCS: 88305; 45380; J2001; J2704

== ENCOUNTER 2023-12-29 12:38 | Day surgery (SDC) | payer MEDICARE, OTHER ==
--- NOTE | 2023-12-27 10:13 | P.HPOR ---
History of Present Illness H&P Date: 12/27/23 Subjective: This is a 58 year old male that presents today for follow up evaluation regarding several month history of progressively worsening left wrist pain with associated swelling isolated to the base of the thumb and radial portion of the wrist. He states he watches his 3-year-old granddaughter, 4 days a week and is often picking her up and the pain is associated with this. He has tried anti- inflammatories with little relief of his symptoms. He denies any numbness or tingling. He denies any injury. He underwent a steroid injection and had 3 months of symptom relief but his symptoms have returned. Physical Examination: LUE: AIN/PIN/Radial/Ulnar/Median motor intact. Radial/Ulnar/Median SILT. 2+/4 Radial/Ulnar pulses palpated. 5/5 APB, 5/5 FDI. Positive Finkelsteins, negative CMC grind, negative Durkan's compression. Impression: 1.) Left DeQuervains tenosynovitis Plan: Diagnosis and treatment options were discussed with the patient. He has failed conservative treatment and would like to proceed with a left first dorsal compartment release. Risks and benefits of surgery including bleeding, infection, damage to surrounding tissue, need for further surgery, residual numb ness were discussed and the patient wished to go forward with surgery.The patient was agreeable with this plan. -Jed Nicholson DO Orthopedic Hand/Upper Extremity Surgeon Past Medical History Past Medical History: Cancer, COPD, Diabetes Mellitus, Hyperlipidemia, Hypertension, Respiratory Disorder, Sleep Apnea/CPAP/BIPAP Additional Past Medical History / Comment(s): cpap machine , prostate removed History of Any Multi-Drug Resistant Organisms: None Reported Past Surgical History: Adenoidectomy, Back Surgery, Hernia Repair, Prostate Surgery, Tonsillectomy Additional Past Surgical History / Comment(s): neck surgery c5 c6, egd, colonoscopy Past Anesthesia/Blood Transfusion Reactions: No Reported Reaction Additional Past Anesthesia/Blood Transfusion Reaction / Comment(s): no blood transfusion Smoking Status: Former smoker - Past Family History Mother Family Medical History: Deep Vein Thrombosis (DVT) Medications and Allergies Home Medications Medication Instructions Recorded Confirmed Type ARIPiprazole [Abilify] 10 mg PO DAILY 06/04/21 12/27/23 History Atorvastatin [Lipitor] 20 mg PO QAM 06/04/21 12/27/23 History DULoxetine HCL [Cymbalta] 60 mg PO 0630,1400 06/04/21 12/27/23 History Fluticasone/Vilanterol [Breo 1 inhalation PO DAILY 06/04/21 12/27/23 History Ellipta 100-25 Mcg Inhaler] Omeprazole [PriLOSEC] 20 mg PO AC-BRKFST 06/04/21 12/27/23 History buPROPion SR [Wellbutrin SR] 150 mg PO 0630,1400 06/04/21 12/27/23 History lamoTRIgine [LaMICtal] 150 mg PO 0630,1400 06/04/21 12/27/23 History Albuterol Inhaler [Ventolin Hfa 1 - 2 puff INHALATION Q6H PRN 12/16/23 12/27/23 History Inhaler] Gabapentin 600 mg PO TID 12/16/23 12/27/23 History metFORMIN HCL 500 mg PO BID 12/16/23 12/27/23 History Allergies Allergy/AdvReac Type Severity Reaction Status Date / Time No Known Allergies Allergy Verified 12/27/23 09:49 Physical Examination Osteopathic Statement: *. No significant issues noted on an osteopathic structural exam other than those noted in the History and Physical/Consult.
[~2023-12-29 12:38] MED LIST changes: -DEXAMETHASONE SOD PHOSPHATE 4 MG/ML 1 ML VIAL IV ONE; -HYDROmorphone 0.5 MG/0.5 ML SYRINGE IVP PRN; -LACTATED RINGERS 1,000 ML IV SCH; -LIDOCAINE 1% (10MG/ML) FOR IV START INTRADERMA PRN; -MIDAZOLAM 2 MG/2 ML VIAL IV PRN; -ONDANSETRON 4 MG/2 ML VIAL IVP ONE; +Pre Op ABX Message 1 EACH MISC MISCELLANE ONE
[2023-12-29 13:02] VITALS: TEMP 97.7
[2023-12-29] MEDS: IV FLUID CONTINUATION 1,000 ML IV ONE (13:08)
[2023-12-29] MEDS: LACTATED RINGERS 1,000 ML IV SCH (13:08)
[2023-12-29 13:19] LABS: Glucose,Whole Blood 125 mg/dL (70-110)
[2023-12-29] MEDS ORDERED: fentaNYL (PF) 50 MCG/ML 2 ML AMP ONE (14:13)
[2023-12-29] MEDS ORDERED: LIDOCAINE 1% INJ 10MG/ML (20 ML MDV) ONE (14:13)
[2023-12-29] MEDS ORDERED: MIDAZOLAM 2 MG/2 ML VIAL ONE (14:13)
[2023-12-29] MEDS ORDERED: PROPOFOL 10 MG/ML 20 ML VIAL IV ONE (14:13)
[2023-12-29] MEDS: LIDOCAINE 2% INJ 20 MG/ML SQ ONE (14:19)
[2023-12-29] MEDS: BUPIVACAINE (PF) 0.25% 30 ML VIAL SQ ONE (14:19)
[2023-12-29] MEDS: BUPIVACAINE (PF) 0.5% 30 ML VIAL SQ ONE (14:19)
--- NOTE | 2023-12-29 14:36 | P.OP ---
Date of Procedure: 12/29/23 Preoperative Diagnosis: Left DeQuervains tenosynovitis Postoperative Diagnosis: Left DeQuervains tenosynovitis Procedure(s) Performed: Left first dorsal compartment release Anesthesia: MAC Surgeon: Jed Nicholson Rn Internal Medicine #1: Nikhil Will Estimated Blood Loss (ml): 0 Pathology: none sent Condition: stable Disposition: PACU Description of Procedure: This is a 58 year old male who presents today for a left first dorsal compartment release after having failed conservative treatment. Risks and benefits of surgery were discussed with the patient including bleeding, damage to surrounding tissue, infection, need for further surgery as well as risks of anesthesia including pulmonary embolism and even and the patient wished to proceed with surgical intervention. The patients was seen in the pre-operative area by myself. Consent and H&P were completed and updated. The correct extremity was marked in the pre-operative area by myself and all other questions were answered. Operative Narrative: The patient was brought to the operating room by the department of anesthesia. They remained on the portable stretcher and a rolling hand table was brought to the side of the operative extremity. The patient was then drifted off to sleep by the department of anesthesia. A nonsterile tourniquet was then applied to the operative extremity and the left upper extremity was then prepped and draped in normal sterile fashion. Pre-operative time out was performed indicating the correct patient, procedure and laterality. All in the room agreed. MAC anesthesia was utilized and a 50:50 mixture of 1% Lidocaine and 0.5% bupivacaine was injected into the subcutaneous tissues of the radial wrist skin, 8ccs total. Pre-operative antibiotics were given prior to skin incision. The operative extremity was the exsanguinated with an esmarch bandage and the tourniquet was inflated to 250mmHg. 15 blade scalpel was used to make a horizontal skin incision centered over the first dorsal compartment of the left wrist. Blunt dissection was taken down to the proximal edge of the first dorsal compartment while taking care to identify and protect branches of the superficial radial sensory nerve. The first dorsal compartment was released in its entirety from proximal to distal. APL and EPB tendons were identified and both were located in the same compartment with no accessory compartment visualized. Skin closure was performed with 4-0 Monocryl suture and steri strips. Sterile soft dressing was applied consisting of 4x4's cast padding and an morena wrap. The patient was then woken by the department of anesthesia and transferred to PACU in stable condition. Nikhil VERMA was present to assist in protection of nerves and retraction. Jed Nicholson D.O. Orthopedic Hand/Upper Extremity Surgeon
[2023-12-29 14:56] VITALS: PULSE 85
[2023-12-29 15:04] VITALS: BP 117/71; RESP 16
== END 2023-12-29 15:14 | disposition home or self-care (01) ==
LOC: OR 12:38
PROVIDERS: ATTEND Orthopaedic Surgery Hand Surgery
DX: M65.4 Radial styloid tenosynovitis [de Quervain] (principal); E11.9 Type 2 diabetes mellitus without complications; E78.5 Hyperlipidemia, unspecified; G47.30 Sleep apnea, unspecified; I10 Essential (primary) hypertension; J44.9 Chronic obstructive pulmonary disease, unspecified; Z79.84 Long term (current) use of oral hypoglycemic drugs; Z87.891 Personal history of nicotine dependence; Z90.89 Acquired absence of other organs; Z98.890 Other specified postprocedural states; Z79.899 Other long term (current) drug therapy
CPT/HCPCS: 25000; J2001 ×2; J2250; J3010; J2704; J0665

== ENCOUNTER → 2024-04-26 | Outpatient (CLI) | payer MEDICARE ==
[2024-04-26 11:50] VITALS: BP 129/76; PULSE 110; RESP 16; TEMP 97.8
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
== END ==
LOC: 3 N SLEEP 11:01
PROVIDERS: ATTEND Internal Medicine
DX: G47.33 Obstructive sleep apnea (adult) (pediatric) (principal); E66.9 Obesity, unspecified; G47.52 REM sleep behavior disorder; E78.5 Hyperlipidemia, unspecified; M53.9 Dorsopathy, unspecified; F31.9 Bipolar disorder, unspecified; Z85.46 Personal history of malignant neoplasm of prostate; Z98.890 Other specified postprocedural states; Z87.39 Personal history of other diseases of the musculoskeletal system and connective tissue; Z98.1 Arthrodesis status; Z68.37 Body mass index [BMI] 37.0-37.9, adult
CPT/HCPCS: 99212